=== PATIENT | male | born 1950 ===

== ENCOUNTER 2021-05-07 05:50 | Day surgery (SDC) | payer OTHER | END 2021-05-07 12:00 | disposition home or self-care (01) | LOC: CIR.AMB 05:50 → AMB-ENDOS 05:50 → CIR.AMB 10:15 → AMB-ENDOS 12:00 | PROVIDERS: ATTEND Colon & Rectal Surgery | DX: D37.4 Neoplasm of uncertain behavior of colon (principal); Z86.010 Personal history of colon polyps; E11.9 Type 2 diabetes mellitus without complications; I10 Essential (primary) hypertension; Z79.84 Long term (current) use of oral hypoglycemic drugs ==